=== PATIENT | female | born 1955 | race Caucasian/White ===

== ENCOUNTER 2020-08-11 05:00 | Emergency (ER) | payer OTHER ==
[~2020-08-11] VITALS: Ht 157.5 cm; Wt 45.4 kg
[2020-08-11 06:03] LABS: ABSOLUTE NEUTROPHILS 6.9 thou/uL (1.4-8.2); BASOPHILS 0.4 % (0.0-2.0); EOSINOPHILS 0.6 % (0.0-3.0); HEMATOCRIT 39.9 % (37.0-47.0); HEMOGLOBIN 13.6 gm/dL (12.0-15.0); LYMPHOCYTES 19.1 % (24.0-44.0); MCH 31.8 pg (26.0-34.0); MCHC 34.2 g/dL (28.0-37.0); MCV 93.1 fL (80.0-100.0); MONOCYTES 6.4 % (1.0-8.0); PLATELET COUNT 239 thou/uL (150-400); POLYS 73.5 % (36.0-66.0); RBC 4.28 mil/uL (4.20-5.00); RDW 13.2 % (10.5-14.5); WBC 9.4 thou/uL (4.0-11.0)
[2020-08-11 06:10] LABS: URINE BILIRUBIN NEGATIVE (Negative); URINE BLOOD TRACE (Negative); URINE CLARITY CLEAR; URINE COLOR YELLOW; URINE GLUCOSE-RANDOM* NEGATIVE (Negative); URINE KETONES NEGATIVE (Negative); URINE NITRITE-REFLEX NEGATIVE (Negative); URINE PROTEIN (DIPSTICK) NEGATIVE (Negative); URINE UROBILINOGEN 0.2 E.U./dl (0.2-1.0)
[2020-08-11 06:11] LABS: URINE LEUKOCYTES-REFLEX 1+ (Negative)
[2020-08-11 06:18] LABS: ANION GAP 12 mmol/L (7-16); BUN 11 mg/dL (7-18); CALCIUM 9.6 mg/dL (8.5-10.1); CHLORIDE 101 mmol/L (98-107); CO2 25 mmol/L (21-32); CREATININE 0.7 mg/dL (0.6-1.0); GLUCOSE 93 mg/dL (74-106); POTASSIUM 3.1 mmol/L (3.5-5.1); SODIUM 138 mmol/L (136-145)
[2020-08-11 06:22] LABS: CASTS None Seen /LPF (None Seen); SQUAMOUS 0-3 Few /LPF (0-3)
[2020-08-11 06:23] LABS: ALBUMIN 3.7 g/dL (3.4-5.0); SGOT 18 U/L (15-37); SGPT 16 U/L (30-65); TOTAL BILIRUBIN 0.4 mg/dL (0.2-1.0); TOTAL PROTEIN 8.4 g/dL (6.4-8.2); TROPONIN-I <0.06 ng/mL (<0.06)
[2020-08-11 06:23] LABS: BACTERIA-REFLEX 1-9 Few /HPF (None Seen); CRYSTALS None Seen /LPF (None Seen); URINE RBC None Seen /HPF (0-2); URINE WBC-REFLEX 0-5 Rare /HPF (0-5)
[2020-08-11 06:45] LABS: MAGNESIUM 2.3 mg/dL (1.8-2.4)
--- NOTE | 2020-08-11 07:26 | EKG ---
[facility] [place] [address] ELECTROCARDIOGRAM REPORT Name: NETTA SIMS Room #: [facility]#: [id number] Admission: 08/11/20 Attend Phys: Discharge: Date of : 55 Report #: [id number] THIS REPORT FOR: cc: MANJINDER Zacarias family physician/PCP MANJINDER Zacarias family physician/PCP Davian Rodriguez MD [facility] ~ THIS REPORT FOR: //name// [facility] ED Test Date: 2020-08-11 Test Time: 05:18:22 Pat Name: NETTA SIMS Department: Room: Gender: F Project Engineer: RAFAEL : 1955 Requested By: Ron Cunningham Order Number: [id number] MD: Davian Rodriguez Measurements Intervals Porter Rate: 92 P: 15 VT: 155 QRS: -44 QRSD: 90 T: 57 QT: 360 QTc: 446 Interpretive Statements Sinus rhythm Left axis deviation No previous ECG available for comparison Electronically Signed On 08-11-2020 7:26:34 CDT by Davian Rodriguez [email or web address] <ELECTRONICALLY SIGNED> By: Davian Rodriguez MD, FAC 08/11/20 0726 0518 7 Davian Rodriguez MD, FAC /EPI
[2020-08-11 07:59] VITALS: BP 130/83
== END 2020-08-11 08:34 | disposition home or self-care (01) ==
LOC: ER 05:00
PROVIDERS: Emergency Medicine
DX: R53.1 Weakness (principal)